=== PATIENT | male | born 1960 | race Caucasian/White ===

== ENCOUNTER 2018-04-27 07:19 | Day surgery (SDC) ==
[2018-04-27 07:43] VITALS: TEMP 98.2
[2018-04-27] MEDS: LIDOCAINE 1% 20 ML MDV ID STA (07:50)
[2018-04-27] MEDS ORDERED: VERSED ONE (09:10)
[2018-04-27] MEDS ORDERED: DIPRIVAN 20 ML VIAL IVP ONE (09:10)
[2018-04-27 11:31] VITALS: BP 122/67
--- NOTE | 2018-04-28 13:05 | OP ---
PROCEDURE: COLONOSCOPY TO THE CECUM WITH SNARE POLYPECTOMY. ENDOSCOPIST: Lisa LUCERO M.D. INDICATION: HISTORY OF POLYPS. INSTRUMENT: ClipCard-190. MEDICATION: PER ANESTHESIA. PROCEDURE: The patient was positioned for colonoscopy. The digital rectal exam was negative. The colonoscope was inserted through the anus and advanced to the cecum. The cecum was identified using the ileocecal valve and the appendiceal orifice as landmarks. The scope was slowly withdrawn through an adequately prepped colon. [place] Bowel Prep Score = 9. In the cecum at the level of the ileocecal valve, a 1 cm polyp is removed using snare cautery. The remaining exam is notable for diverticular disease throughout the left colon. The retroflex exam was otherwise normal. He tolerated the procedure without immediate complication. Withdrawal time 10 min and 56 seconds. PLAN: 1. Suggest repeat colonoscopy for surveillance in 3 years. CC: DR. JO ANN BOWMAN
== END 2018-04-27 10:30 | disposition home or self-care (01) ==
LOC: SURG 07:19
PROVIDERS: ATTEND Internal Medicine Gastroenterology
DX: Z86.010 Personal history of colon polyps (principal); D12.0 Benign neoplasm of cecum